=== PATIENT | male | born 1945 | race Caucasian/White ===

== ENCOUNTER → 2017-09-13 08:16 | Outpatient (CLI) | payer MEDICARE, SELFPAY ==
[2017-09-13 10:51] LABS: AST(SGOT) 19 U/L (15-37); Alanine Aminotransfer ALT/SGPT 33 U/L (16-61); Albumin, Serum 3.8 g/dL (3.2-5.0); Alkaline Phosphatase 64 U/L (45-117); Cholesterol 149 mg/dL (200); Globulin 3.4 g/dL (2.2-4.2); High Density Lipoprotein 41 mg/dL; Protein, Total 7.2 g/dL (6.4-8.2); Triglycerides 153 mg/dL; Very Low Density Lipoprotein 31 mg/dL (5-40)
== END ==
PROVIDERS: Family Provider Family Medicine; PCP Family Medicine; Visit Provider Physician Assistant Medical
DX: E78.5 Hyperlipidemia, unspecified (principal); Z79.899 Other long term (current) drug therapy
CPT/HCPCS: 36415; 80061; 80076

== ENCOUNTER → 2017-10-17 06:34 | Outpatient (CLI) | payer MEDICARE, SELFPAY ==
--- NOTE | 2017-10-17 11:00 | ECHOD_ITS ---
Reason For Study: DYSPNEA Procedure This was a 2D Doppler, Color Flow transthoracic echocardiogram. Contrast injection was performed. Exam performed in department. Left Ventricle Normal LV size. Left ventricular systolic function is normal. The estimated ejection fraction is 60 %. No regional wall motion abnormalities noted. Right Ventricle Normal RV size. Normal systolic function. Atria Normal left atrium. Normal right atrium. Mitral Valve Normal mitral valve. Tricuspid Valve Normal tricuspid valve. Unable to estimate RV systolic pressure/pulmonary artery pressure due to technically difficult study. Aortic Valve Normal aortic valve. Trisinus/trileaflet aortic valve. Pulmonic Valve Normal pulmonic valve. Great Vessels Normal aortic root. The pulmonary artery is normal size. Normal inferior vena cava. Pericardium/Pleural No pericardial effusion. Medication Diluted definity 3ml given slow IV push to enhance endocardial definition. MMode/2D Measurements & Calculations LVIDd: 5.2 cm IVSd: 0.95 cm Ao root diam: 3.2 cm LVIDs: 4.0 cm LVPWd: 0.89 cm RVDd: 3.4 cm FS: 22.6 % LAV(MOD-bp): 57.2 ml EDV(MOD-sp4): 86.5 ml EDV(MOD-sp2): 110.9 ml LAV(MOD-bp) Indexed: 24.8 ml/m2 ESV(MOD-sp4): 30.7 ml EF(MOD-sp2): 56.9 % LAV(MOD-sp2): 76.7 ml EF(MOD-sp4): 64.5 % LAV(MOD-sp4): 38.0 ml SV(MOD-sp4): 55.8 ml SV(MOD-sp2): 63.1 ml LA A4 area: 15.8 cm2 RA A4 area: 9.9 cm2 Doppler Measurements & Calculations MV E max justin: 69.0 cm/sec Lat Peak E' Justin: 8.6 cm/sec Med Peak E' Justin: 6.7 cm/sec MV A max justin: 52.8 cm/sec E/E' lat: 8.0 E/E' med: 10.3 MV E/A: 1.3 Ao V2 max: 107.9 cm/sec LV V1 max: 96.9 cm/sec PA V2 max: 110.6 cm/sec Ao max P.7 mmHg LV V1 max P.8 mmHg PI end-d justin: 85.9 cm/sec Interpretation Summary Normal LV size. Left ventricular systolic function is normal. The estimated ejection fraction is 60 %. Contrast injection was performed. Ordering Physician: Kash Sidhu Referring Physician: RAMSEY MARTÍNEZ Performed By: Casie Grande, CHRISSIE, RVT
--- NOTE | 2017-10-17 21:32 | STRESSREP ---
Stress Test Report Exercise myocardial perfusion stress test. 71-year-old man with a history of known coronary artery disease status post coronary bypass surgery. Medications aspirin Plavix Zestril Lopressor Pravachol Restoril. Resting EKG demonstrates sinus rhythm with rate of 61 bpm premature atrial complexes are noted resting blood pressure is 132/78 mmHg. The patient exercised according to regular Olivier protocol for total duration of 4 minutes and 30 seconds completing 1 minute and 30 seconds into stage II of the Olivier protocol the maximum heart rate attained was 142 bpm is 95% of maximum predicted heart rate the maximum workload attained was 6.4 metabolic equivalents. At rest there were no ST or T-wave changes noted suggest ischemia at peak exercise upsloping ST changes were noted with no meet the criteria for ischemia. Occasional premature ventricular complex was noted and T-wave inversions were noted in lead I and aVL. Myocardial perfusion protocol. 14.0 mCi of technetium 99m sestamibi was injected at rest. The patient exercised for 4 minutes and 30 seconds attaining 95% of maximum predicted heart rate and a workload of 6.4 metabolic equivalents at peak exercise 45.0 mCi of technetium 99m sestamibi was injected stress images were obtained stress and rest images were reconstructed and compared in the short axis vertical long and horizontal long axis. Gated images were also obtained pre- Perfusion SPECT analysis: Review of the stress images demonstrate a mild perfusion defect noted involving the apex on the stress and resting images. The rest of the moody septum lateral wall anterior wall and inferior wall appear to be well perfused. The above is suggestive of possible previous apical infarct. No evidence of reversibility is noted suggest ischemia. Gated SPECT analysis: The gated ejection fraction is noted to be 51%. Conclusion: Exercise myocardial perfusion stress test with no obvious evidence of ischemia. Preserved ejection fraction. Previous apical infarct present.
== END ==
PROVIDERS: Family Provider Family Medicine; PCP Family Medicine; Visit Provider Internal Medicine Cardiovascular Disease
DX: I25.10 Atherosclerotic heart disease of native coronary artery without angina pectoris (principal); R06.02 Shortness of breath
CPT/HCPCS: 78452; 93017; 93306; A9500; Q9957; A4216; C8929

== ENCOUNTER → 2019-03-01 09:14 | Outpatient (CLI) | payer MEDICARE, SELFPAY ==
[2018-09-21 10:25] VITALS: BMI 38.2
[2019-03-01 10:30] LABS: AST(SGOT) 27 U/L (15-37); Alanine Aminotransfer ALT/SGPT 38 U/L (16-61); Albumin, Serum 3.8 g/dL (3.2-5.0); Alkaline Phosphatase 78 U/L (45-117); Bilirubin, Direct < 0.05 mg/dL (0.00-0.30); Cholesterol 161 mg/dL (200); Globulin 3.5 g/dL (2.2-4.2); High Density Lipoprotein 40 mg/dL; Protein, Total 7.3 g/dL (6.4-8.2); Triglycerides 153 mg/dL; Very Low Density Lipoprotein 31 mg/dL (5-40)
== END ==
PROVIDERS: Family Provider Family Medicine; PCP Family Medicine; Referring Provider Nurse Practitioner Family; Visit Provider Nurse Practitioner Family
DX: I25.10 Atherosclerotic heart disease of native coronary artery without angina pectoris (principal); E78.5 Hyperlipidemia, unspecified
CPT/HCPCS: 36415; 80061; 80076

== ENCOUNTER → 2019-04-25 10:31 | Outpatient (CLI) | payer MEDICARE, SELFPAY ==
[2018-09-21 10:25] VITALS: BMI 38.2
[2019-04-25 12:37] LABS: ALB/GLOB Ratio 1.2 RATIO (0.9-2.4); AST(SGOT) 21 U/L (15-37); Alanine Aminotransfer ALT/SGPT 36 U/L (16-61); Albumin, Serum 3.8 g/dL (3.2-5.0); Alkaline Phosphatase 60 U/L (45-117); Anion Gap 9 (5-15); BUN 27 mg/dL (7-18); BUN/Creat Ratio 22.7 RATIO (10-20); Calcium,Total 8.7 mg/dL (8.5-10.1); Chloride 109 mmol/L (98-107); Creatinine, Serum 1.19 mg/dL (0.70-1.30); EST Glomerular Filtration Rate 64 mL/min (>60); Est Glom Filt Rate - Afr Amer 77 mL/min (>60); Globulin 3.2 g/dL (2.2-4.2); Glucose 112 mg/dL (74-106); PSA,Total - Annual Screen 1.38 ng/mL (0.00-4.00); Potassium 4.3 mmol/L (3.5-5.1); Sodium Level 141 mmol/L (136-145)
== END ==
PROVIDERS: Family Provider Family Medicine; PCP Family Medicine; Referring Provider Family Medicine; Visit Provider Family Medicine
DX: Z12.5 Encounter for screening for malignant neoplasm of prostate (principal); I25.810 Atherosclerosis of coronary artery bypass graft(s) without angina pectoris
CPT/HCPCS: 36415; 80053; 84153; G0103

== ENCOUNTER 2021-12-17 11:14 | Outpatient (CLI) | payer MEDICARE, SELFPAY ==
[2021-12-17 12:15] LABS: Absolute Lymphocyte Count 1.29 X10^3/uL (0.83-4.51); Absolute Neutrophil Count 3.7 X10^3/uL (2.0-7.7); Basophil# 0.04 X10^3/uL; Basophil% 0.7 % (0-1); Eosinophil# 0.11 X10^3/uL; Eosinophils% 1.8 % (0-5); Hematocrit 48.6 % (40-54); Hemoglobin 15.8 g/dL (13.0-16.5); Lymphocyte # 1.29 X10^3/ul (0.83-4.51); Lymphocyte % 21.3 % (19-41); Mean Corp Hgb Conc 32.5 g/dL (32-36); Mean Corpuscular Hgb 28.8 pg (27.0-32.0); Mean Corpuscular Volume 88.7 fL (80-94); Mean Platelet Vol. 11.2 fl (6.2-12.0); Monocyte# 0.91 X10^3/uL; NRBC Flagged by Analyzer 0 % (0-5); Neutrophil # 3.69 X10^3/uL (2.7-7.7); Neutrophil % 60.7 % (47-70); Platelet Count 204 K/mm3 (150-450); RBC Distribution Width CV 12.5 % (11.6-14.6); RBC Distribution Width SD 40.9 fl (35.1-43.9); Red Blood Count 5.48 M/mm3 (4.6-6.2); White Blood Count 6.1 K/mm3 (4.4-11.0)
[2021-12-17 12:40] LABS: ALB/GLOB Ratio 1.2 RATIO (0.9-2.4); AST(SGOT) 22 U/L (15-37); Alanine Aminotransfer ALT/SGPT 38 U/L (16-61); Albumin, Serum 3.7 g/dL (3.2-5.0); Alkaline Phosphatase 58 U/L (45-117); Anion Gap 6 (5-15); BUN 25 mg/dL (7-18); BUN/Creat Ratio 24.5 RATIO (10-20); Calcium,Total 9.5 mg/dL (8.5-10.1); Chloride 106 mmol/L (98-107); Creatinine, Serum 1.02 mg/dL (0.70-1.30); EST Glomerular Filtration Rate 75 mL/min (>60); Est Glom Filt Rate - Afr Amer 91 mL/min (>60); Globulin 3.2 g/dL (2.2-4.2); Glucose 89 mg/dL (74-106); Potassium 4.5 mmol/L (3.5-5.1); Protein, Total 6.9 g/dL (6.4-8.2); Sodium Level 137 mmol/L (136-145)
[2021-12-17 13:54] LABS: Microalbumin,Random Urine 6.5 mg/L (NO RANGE EST.); Microalbumin:Creatinine Ratio 5.2 mg/g CRE (<30 mg/g CRE)
== END 2021-12-17 23:59 | disposition home or self-care (01) ==
PROVIDERS: PCP Family Medicine; Referring Provider Family Medicine; Visit Provider Family Medicine
DX: Z00.00 Encounter for general adult medical examination without abnormal findings (principal); E66.01 Morbid (severe) obesity due to excess calories; I25.810 Atherosclerosis of coronary artery bypass graft(s) without angina pectoris; G47.33 Obstructive sleep apnea (adult) (pediatric); Z68.39 Body mass index [BMI] 39.0-39.9, adult
CPT/HCPCS: 36415; 80053; 82043; 82570; 83036; 85025

== ENCOUNTER → 2022-02-16 | Outpatient (CLI) | payer MEDICARE, SELFPAY ==
[2022-02-16 10:39] LABS: AST(SGOT) 19 U/L (15-37); Alanine Aminotransfer ALT/SGPT 34 U/L (16-61); Albumin, Serum 3.6 g/dL (3.2-5.0); Alkaline Phosphatase 59 U/L (45-117); Bilirubin, Direct 0.19 mg/dL (0.00-0.30); Cholesterol 144 mg/dL (200); Globulin 3.6 g/dL (2.2-4.2); High Density Lipoprotein 41 mg/dL; Protein, Total 7.2 g/dL (6.4-8.2); Triglycerides 149 mg/dL; Very Low Density Lipoprotein 30 mg/dL (5-40)
== END | disposition home or self-care (01) ==
LOC: LAB 09:28
PROVIDERS: PCP Family Medicine; Referring Provider Internal Medicine Cardiovascular Disease; Visit Provider Internal Medicine Cardiovascular Disease
DX: E78.00 Pure hypercholesterolemia, unspecified (principal)
CPT/HCPCS: 36415; 80061; 80076

== ENCOUNTER → 2022-12-20 | Outpatient (CLI) | payer MEDICARE, SELFPAY ==
[2022-12-20 12:57] LABS: Absolute Lymphocyte Count 1.25 X10^3/uL (0.83-4.51); Absolute Neutrophil Count 3.7 X10^3/uL (2.0-7.7); Basophil# 0.03 X10^3/uL; Basophil% 0.5 % (0-1); Eosinophil# 0.17 X10^3/uL; Eosinophils% 2.9 % (0-5); Hematocrit 48.3 % (40-54); Hemoglobin 15.6 g/dL (13.0-16.5); Lymphocyte # 1.25 X10^3/ul (0.83-4.51); Lymphocyte % 21.2 % (19-41); Mean Corp Hgb Conc 32.3 g/dL (32-36); Mean Corpuscular Hgb 29.1 pg (27.0-32.0); Mean Corpuscular Volume 89.9 fL (80-94); Mean Platelet Vol. 11.4 fl (6.2-12.0); Monocyte# 0.72 X10^3/uL; Monocyte% 12.2 % (0-10); NRBC Flagged by Analyzer 0 % (0-5); Neutrophil # 3.71 X10^3/uL (2.7-7.7); Neutrophil % 62.9 % (47-70); Platelet Count 169 K/mm3 (150-450); RBC Distribution Width CV 12.6 % (11.6-14.6); RBC Distribution Width SD 41.4 fl (35.1-43.9); Red Blood Count 5.37 M/mm3 (4.6-6.2); White Blood Count 5.9 K/mm3 (4.4-11.0)
[2022-12-20 13:13] LABS: Microalbumin,Random Urine 6.2 mg/L (NO RANGE EST.); Microalbumin:Creatinine Ratio 6.9 mg/g CRE (<30 mg/g CRE)
[2022-12-20 13:36] LABS: AST(SGOT) 20 U/L (15-37); Alanine Aminotransfer ALT/SGPT 36 U/L (16-61); Albumin, Serum 3.5 g/dL (3.2-5.0); Alkaline Phosphatase 55 U/L (45-117); Anion Gap 6 (5-15); BUN 15 mg/dL (7-18); BUN/Creat Ratio 16.3 RATIO (10-20); Calcium,Total 9.1 mg/dL (8.5-10.1); Chloride 109 mmol/L (98-107); Creatinine, Serum 0.92 mg/dL (0.70-1.30); EST Glomerular Filtration Rate 84 mL/min (>60); Est Glom Filt Rate - Afr Amer 102 mL/min (>60); Globulin 3.4 g/dL (2.2-4.2); Glucose 94 mg/dL (74-106); Hemoglobin A1c 6.1 % (3.8-5.6); Potassium 4.1 mmol/L (3.5-5.1); Protein, Total 6.9 g/dL (6.4-8.2); Sodium Level 139 mmol/L (136-145)
== END | disposition home or self-care (01) ==
LOC: MFPLAB 11:23
PROVIDERS: PCP Family Medicine; Visit Provider Family Medicine
DX: R73.03 Prediabetes (principal); G47.33 Obstructive sleep apnea (adult) (pediatric)
CPT/HCPCS: 36415; 80053; 82043; 82570; 83036; 85025

== ENCOUNTER → 2023-03-14 | Outpatient (CLI) | payer MEDICARE, SELFPAY ==
--- NOTE | 2023-03-16 08:26 | STRESSREP ---
Stress Test Report Pharmacologic myocardial perfusion stress test. 77-year-old man with a history of coronary artery disease Resting EKG demonstrates sinus rhythm with a rate of 60 bpm. Resting blood pressure is 118/80 mmHg. 0.4 mg of regadenoson was infused per usual protocol followed by rapid intravenous saline flush injection. Continuous EKG monitoring was performed. The maximum heart rate was 82 bpm which was 57% of max impacted heart rate the maximum workload was 1 metabolic equivalent. At rest there were no ST or T wave changes noted to suggest ischemia and at peak infusion nonspecific ST changes were noted which did not meet the criteria for ischemia. No clinical angina is noted. The final blood pressure was 128/80 mmHg. Myocardial perfusion protocol. 14.7 mCi of technetium 99m sestamibi was injected at rest. 0.4 mg of regadenoson was infused per usual protocol. At peak infusion 44.9 mCi of technetium 99m sestamibi was injected stress images were obtained stress and rest images were reconstructed and compared in the short axis vertical long and horizontal long axis. Gated images were also obtained. Perfusion SPECT analysis: Review of the stress images demonstrate normal uptake of tracer noted in all areas of the myocardium except for the apex and the basal anterolateral wall. Both these areas have reduced perfusion. The resting images similar demonstrated normal uptake of tracer noted as above and is suggestive of previous infarct in these territories. No ischemia is noted. Gated SPECT analysis: The gated ejection fraction is 52%. Conclusion: Normal pharmacologic myocardial perfusion stress test. Previous apical infarct and basal inferolateral infarct Preserved ejection fraction.
== END | disposition home or self-care (01) ==
LOC: CVS 06:10
PROVIDERS: PCP Family Medicine; Referring Provider Internal Medicine Cardiovascular Disease; Visit Provider Internal Medicine Cardiovascular Disease
DX: Z95.1 Presence of aortocoronary bypass graft (principal); I25.10 Atherosclerotic heart disease of native coronary artery without angina pectoris
CPT/HCPCS: 78452; 93017; A9500; A4216; J2785

== ENCOUNTER → 2023-06-23 | Outpatient (CLI) | payer MEDICARE, SELFPAY ==
--- OUTSIDE RECORDS SUMMARY | 2023-06-23 10:15 | XMS RPT_ITS | CCD ---
Author Name Unknown Address [address] [place] [address] Organization [facility] Care Team Providers Care Aging Room Operator Name Role Phone Cherelle Roger Unavailable Unavailable COSME Ochoa, Carolin Francois Unavailable Franko Vizcaino Unavailable Unavailable Sloane SANDHU, Alva Clancy Unavailable Unavailable Cherelle Roger Unavailable Unavailable Pcp, No Primary Care Provider Unavailcristiana Perez MD, Ramsey Moss Primary Care Provider [phone] RAMSEY PEREZ Primary Care Unavailable DIANELYS GÓMEZ Attending Unavailable DIANELYS GÓMEZ Admitting Unavailable Ramsey Perez MD Primary Care Provider Ramsey Perez MD Primary Care Provider [phone] DIANELYS GÓMEZ Attending Unavailable DIANELYS GÓMEZ Referring Unavailable MAURICIO RAMSEY SIMEON Primary Care Unavailable ALISON VASQUEZ Attending Unavailable ALISON VASQUEZ Referring Unavailable MACIE PEREZIC SIMEON Primary Care Unavailable DIANELYS GÓMEZ Attending Unavailable ANTHONY DORSEY Referring Unavailable DIANELYS GÓMEZ Attending Unavailable DIANELYS GÓMEZ Referring Unavailable MAURICIO RAMSEY SIMEON Primary Care Unavailable ALISON VASQUEZ Attending Unavailable DIANELYS GÓMEZ Referring Unavailable RAMSEY PEREZ SIMEON Primary Care Unavailable Medications Current Medications Medication Drug Class(es) Dates Sig (Normalized) Sig (Original) benoxinate hydrochloride 4 mg/ml / fluorescein sodium 2.5 mg/ml ophthalmic solution (1 source) Diagnostic Dye Start: 02-10-2022 End: 02-10-2022 fluorescein-benoxi keith 0.25-0.4 % 1 Drop (FLURESS) phenylephrine hydrochloride 25 mg/ml ophthalmic solution (1 source) alpha-1 Adrenergic Agonist Start: 02-10-2022 End: 02-10-2022 PHENYLephrine 2.5 % 1 Drop (AK-DILATE, ANTONIO-SYNEPHRINE) proparacaine hydrochloride 5 mg/ml ophthalmic solution (1 source) Local Anesthetic Start: 02-10-2022 End: 02-10-2022 proparacaine 0.5 % 1 Drop (ALCAINE) tropicamide 10 mg/ml ophthalmic solution (1 source) Anticholinergic Start: 02-10-2022 End: 02-10-2022 tropicamide 1 % 1 Drop (MYDRIACYL) Completed/Discontinued Medications Medication Drug Class(es) Dates Sig (Normalized) Sig (Original) aspirin 81 mg oral tablet (20 sources) Platelet Aggregation Inhibitor, Nonsteroidal Anti-inflammatory Drug Start: 11-14-2012 take 1 tablet by mouth every other day ASPIRIN EC 81 MG TBEC One tablet by mouth every other day ASPIRIN [id number] Carolin Ochoa PA-C Problems Active Problems Problem Classification Problem Date Documented Date Episodic/Chronic Cataract (12 sources) Bilateral senile combined form cataracts of eyes; Translations: [Combined forms of age-related cataract, bilateral] Onset: 02-10-2022 Chronic Complication of device; implant or graft (8 sources) Atherosclerosis of coronary artery bypass graft(s) without angina pectoris; Translations: [Atherosclerosis of coronary artery bypass graft(s) without angina pectoris] Onset: 09-01-2010 Resolved: 03-08-2017 03-08-2017 Chronic Coronary atherosclerosis and other heart disease (20 sources) Coronary arteriosclerosis; Translations: [Coronary atherosclerosis] Onset: 03-14-2008 Resolved: 08-29-2015 09-01-2010 Chronic Disorders of lipid metabolism (12 sources) Hyperlipidemia; Translations: [Hyperlipidemia, unspecified] Onset: 03-14-2008 05-02-2012 Chronic Essential hypertension (5 sources) Hypertensive disorder; Translations: [Essential (primary) hypertension] Onset: 03-04-2015 03-04-2015 Chronic Osteoarthritis (7 sources) Degenerative joint disease involving multiple joints; Translations: [Polyosteoarthritis, unspecified] Onset: 03-14-2008 03-14-2008 Chronic Other ear and sense organ disorders (7 sources) Hearing loss; Translations: [Unspecified hearing loss, unspecified ear] Onset: 03-14-2008 03-14-2008 Chronic Other nutritional; endocrine; and metabolic disorders (13 sources) Body mass index (BMI) 33.0-33.9, adult; Translations: [Body mass index (BMI) 34.0-34.9, adult] Onset: 07-06-2013 Resolved: 09-04-2015 08-30-2014 Chronic Other nutritional; endocrine; and metabolic disorders (4 sources) Body mass index (BMI) 35.0-35.9, adult; Translations: [Body mass index (BMI) 35.0-35.9, adult] Onset: 03-04-2015 03-02-2016 Chronic Other nutritional; endocrine; and metabolic disorders (8 sources) Body mass index (BMI) 34.0-34.9, adult; Translations: [Body mass index (BMI) 34.0-34.9, adult] Onset: 07-06-2013 03-04-2015 Chronic Other nutritional; endocrine; and metabolic disorders (7 sources) Obesity; Translations: [Obesity, unspecified] Onset: 08-31-2010 08-31-2010 Chronic Retinal detachments; defects; vascular occlusion; and retinopathy (3 sources) Epiretinal membrane of left eye; Translations: [Puckering of macula, left eye] Chronic Unclassified (20 sources) Long-term drug therapy; Translations: [Long-term (current) use of other medications] Onset: 09-01-2010 Resolved: 03-04-2015 05-02-2012 Unclassified (3 sources) 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; Translations: [Presence of aortocoronary bypass graft] Onset: 09-01-2010 03-08-2017 Past or Other Problems Problem Classification Problem Date Documented Da te Episodic/Chronic Abdominal hernia (14 sources) Incisional hernia; Translations: [Incisional hernia without obstruction or gangrene] Onset: 11-22-2013 11-22-2013 Episodic Coronary atherosclerosis and other heart disease (5 sources) Presence of aortocoronary bypass graft; Translations: [Presence of aortocoronary bypass graft] Onset: 09-01-2010 09-01-2010 Episodic Residual codes; unclassified (7 sources) Insomnia; Translations: [Insomnia, unspecified] Onset: 03-14-2008 03-14-2008 Episodic Results Test Name Value Interpretation Reference Range Facil ity Vital Signs Date Time Vital Sign Value Performing Clinician [facility] 03-16-2017 09:24-0400 BMI (Body Mass Index) 35.56 kg/m2 [facility] Work Phone: 03-16-2017 09:24-0400 BP Diastolic 70 mm[Hg] [facility] Work Phone: 03-16-2017 09:24-0400 BP Systolic 118 mm[Hg] [facility] Work Phone: 03-16-2017 09:24-0400 Height 180.34 cm [facility] Work Phone: 03-16-2017 09:24-0400 Pulse (Heart Rate) 62 /min [facility] Work Phone: 03-16-2017 09:24-0400 Respiratory Rate 18 /min [facility] Work Phone: 03-16-2017 09:24-0400 Weight 115.67 kg C[facility]lle [facility] Work Phone: 09-07-2016 09:37-0400 BMI (Body Mass Index) 35.14 kg/m2 Carolin Ochoa PA-C [facility] Work Phone: 09-07-2016 09:37-0400 BP Diastolic 54 mm[Hg] Carolin Ochoa PA-C [facility] Work Phone: 09-07-2016 09:37-0400 BP Systolic 110 mm[Hg] Carolin Ochoa PA-C [facility] Work Phone: 09-07-2016 09:37-0400 Height 180.34 cm Carolin Ochoa PA-C [facility] Work Phone: 09-07-2016 09:37-0400 Pulse (Heart Rate) 60 /min Carolin Ochoa PA-C [facility] Work Phone: 09-07-2016 09:37-0400 Respiratory Rate 20 /min Carolin Ochoa PA-C [facility] Work Phone: 09-07-2016 09:37-0400 Weight 114.31 kg Carolin Ochoa PA-C [facility] Work Phone: 03-02-2016 09:04-0400 Heart rate 53 /min [facility] Work Phone: 03-02-2016 08:51-0400 BSA (Body Surface Area) 2.35 m2 Carolin Ochoa PA-C [facility] Work Phone: 11-14-2012 09:42-0400 Heart rate 375 ms Carolin Ochoa PA-C [facility] Work Phone: Encounters Encounter Date Encounter Type Care Provider Facility Start: 05-11-2022 End: 05-11-2022 ambulatory ALISON VASQUEZ Facility:[facility] Start: 05-11-2022 End: 05-11-2022 Patient encounter procedure Alison Vasquez OD Work Phone: Ophthalmology Procedures Date Procedure Procedure Detail Performing Clinician Start: 04-20-2022 Computerized ophthal rebeka imaging retina Dianelys Gómez MD Work Phone: Start: 04-15-2022 Computerized ophthal rebeka imaging retina Alison Vasquez OD Work Phone: Start: 03-16-2017 End: 03-16-2017 INDEPENDENT DRIVER Carolin Ochoa PA-C Work Phone: Start: 03-16-2017 End: 03-16-2017 Follow Up Appt 6 months Carolin lara PA-C Work Phone: Start: 03-16-2017 End: 03-16-2017 Dietary management education, guidance, and counseling Cherelle Roger Start: 03-04-2017 End: 03-04-2017 *Hepatic Function Panel Priscila Austin Start: 03-04-2017 End: 03-04-2017 Lipid 1996 panel - Serum or Plasma Kash S Nahum, MD Start: 09-07-2016 End: 09-07-2016 Follow Up Appt 6 months Priscila Austin Start: 09-07-2016 End: 09-07-2016 VASU Sidhu MD Start: 08-24-2016 End: 09-03-2016 *Hepatic Function Panel Priscila Austin Start: 08-24-2016 End: 09-03-2016 Lipid 1996 panel - Serum or Plasma Kash Sidhu MD Start: 03-02-2016 End: 03-02-2016 INDEPENDENT DRIVER Carolin Ochoa PA-C Work Phone: Start: 03-02-2016 End: 03-02-2016 Ecg routine ecg w/least 12 lds w/i&r Carolin Ochoa PA-C Work Phone: Start: 03-02-2016 End: 03-02-2016 Follow Up Appt 6 months Carolin lara PA-C Work Phone: Start: 02-24-2016 End: 02-26-2016 *Hepatic Function Panel Priscila Austin Start: 02-24-2016 End: 02-26-2016 Lipid 1996 panel - Serum or Plasma Kash Sidhu MD Start: 09-05-2015 End: 09-05-2015 Follow Up Appt 6 months Priscila Austin Start: 09-05-2015 End: 09-05-2015 VASU Sidhu MD Start: 09-05-2015 End: 09-05-2015 Dietary management education, guidance, and counseling Carolin Ochoa PA-C Start: 08-29-2015 End: 08-29-2015 *Hepatic Function Panel Priscila Austin Start: 08-29-2015 End: 08-29-2015 Lipid 1996 panel - Serum or Plasma Kash Sidhu MD Start: 03-04-2015 End: 03-04-2015 INDEPENDENT DRIVER Carolin Ochoa PA-C Work Phone: Start: 03-04-2015 End: 03-05-2015 Documentation of current medications Carolin Ochoa PA-C Work Phone: Start: 03-04-2015 End: 03-04-2015 Follow Up Appt 6 months Carolin lara PA-C Work Phone: Start: 01-24-2015 End: 03-04-2015 *Hepatic Function Panel Carolin lara PA-C Work Phone: Start: 01-24-2015 End: 03-04-2015 Lipid 1996 panel - Serum or Plasma Carolin Ochoa PA-C Work Phone: Start: 08-30-2014 End: 02-28-2015 *Hepatic Function Panel Priscila Austin Start: 08-30-2014 End: 08-31-2014 Documentation of current medications Kash Sidhu MD Start: 08-30-2014 End: 02-28-2015 Ecg routine ecg w/least 12 lds w/i&r Kash Sidhu MD Start: 08-30-2014 End: 08-30-2014 Follow Up Appt 6 months Priscila Austin Start: 08-30-2014 End: 02-28-2015 Lipid 1996 panel - Serum or Plasma Kash Sidhu MD Start: 08-30-2014 End: 08-30-2014 MMM Kash Sidhu MD Start: 08-14-2014 End: 02-28-2015 *Hepatic Function Panel Priscila Austin Start: 08-14-2014 End: 02-28-2015 Lipid 1996 panel - Serum or Plasma Kash Sidhu MD Start: 01-11-2014 End: 02-13-2014 *Hepatic Function Panel Carolin lara PA-C Work Phone: Start: 01-11-2014 End: 01-11-2014 INDEPENDENT DRIVER Carolin Ochoa PA-C Work Phone: Start: 01-11-2014 End: 01-11-2014 Follow Up Appt 6 months Carolin lara PA-C Work Phone: Start: 01-11-2014 End: 02-13-2014 Lipid Oumar panel - Serum or Plasma Carolin Ochoa PA-C Work Phone: Start: 07-06-2013 End: 07-06-2013 Follow Up Appt 6 months Priscila Austin Start: 07-06-2013 End: 07-06-2013 MMM Kash Sidhu MD Start: 11-14-2012 End: 02-15-2013 *Hepatic Function Panel Carolin lara PA-C Work Phone: Start: 11-14-2012 End: 11-14-2012 INDEPENDENT DRIVER Carolin Ochoa PA-C Work Phone: Start: 11-14-2012 End: 11-14-2012 Follow Up Appt 6 months Carolin lara PA-C Work Phone: Start: 11-14-2012 End: 01-11-2014 Lipid 1996 panel - Serum or Plasma Carolin Ochoa PA-C Work Phone: Start: 10-28-2012 End: 02-16-2013 *Hepatic Function Panel Priscila Austin Start: 10-28-2012 End: 02-16-2013 Lipid 1996 panel - Serum or Plasma Kash Sidhu MD Start: 05-10-2012 End: 05-10-2012 Follow Up Appt 6 months Priscila Austin Start: 09-23-2011 End: 09-23-2011 Follow Up Appt 6 months Priscila Austin Start: 05-04-2011 End: 05-01-2012 *Hepatic Function Panel Priscila Austin Start: 05-04-2011 End: 05-04-2011 Follow Up Appt 6 months Priscila Austin Start: 05-04-2011 End: 05-01-2012 Lipid 1996 panel - Serum or Plasma Kash Sidhu MD Plan of Treatment Date Care Activity Detail Author Start: 01-28-2022 Influenza vaccination INFLUENZA (#1) [facility] Start: 05-30-2021 ADVANCE DIRECTIVE DISCUSSION ADVANCE DIRECTIVE DISCUSSION [facility] Start: 05-30-2021 DEPRESSION ASSESSMENT DEPRESSION ASSESSMENT [facility] Start: 08-31-2020 Urine microalbumin profile DTAP,TDAP,TD (2 - Td or Tdap) [facility] Start: 03-04-2018 Hepatitis B surface antibody level LDL CHOLESTEROL [facility] Start: 09-20-2017 End: 09-20-2017 Appointment Appointment [facility] Work Phone: Start: 09-02-2017 End: 03-04-2017 *Hepatic Function Panel *Hepatic Function Panel [facility] Work Phone: Start: 09-02-2017 End: 03-04-2017 Lipid panel [AGGREGATE] *Lipid Profile CC PCP [facility] Work Phone: Start: 03-16-2017 End: 03-16-2017 INDEPENDENT DRIVER INDEPENDENT DRIVER [facility] Work Phone: Start: 03-16-2017 End: 03-16-2017 Follow Up Appt 6 months Follow Up Appt 6 months [facility] Work Phone: Start: 03-16-2017 End: 03-16-2017 Appointment Appointment [facility] Work Phone: Start: 03-07-2017 End: 03-04-2017 *Hepatic Function Panel *Hepatic Function Panel [facility] Work Phone: Start: 03-07-2017 End: 03-04-2017 Lipid panel [AGGREGATE] *Lipid Profile CC PCP [facility] Work Phone: Start: 09-07-2016 End: 09-07-2016 Follow Up Appt 6 months Follow Up Appt 6 months [facility] Work Phone: Start: 09-07-2016 End: 09-07-2016 MMM MMM [facility] Work Phone: Start: 08-24-2016 End: 09-03-2016 *Hepatic Function Panel *Hepatic Function Panel [facility] Work Phone: Start: 08-24-2016 End: 09-03-2016 Lipid panel [AGGREGATE] *Lipid Profile CC PCP [facility] Work Phone: Start: 03-02-2016 End: 03-02-2016 INDEPENDENT DRIVER INDEPENDENT DRIVER [facility] Work Phone: Start: 03-02-2016 End: 03-02-2016 Ecg routine ecg w/least 12 lds w/i&r EKG (In office) [facility] Work Phone: Start: 03-02-2016 End: 03-02-2016 Follow Up Appt 6 months Follow Up Appt 6 months [facility] Work Phone: Start: 02-24-2016 End: 02-26-2016 *Hepatic Function Panel *Hepatic Function Panel [facility] Work Phone: Start: 02-24-2016 End: 02-26-2016 Lipid panel [AGGREGATE] *Lipid Profile CC PCP [facility] Work Phone: Start: 09-05-2015 End: 09-05-2015 Follow Up Appt 6 months Follow Up Appt 6 months [facility] Work Phone: Start: 09-05-2015 End: 09-05-2015 MMM MMM [facility] Work Phone: Start: 08-29-2015 End: 08-29-2015 *Hepatic Function Panel *Hepatic Function Panel [facility] Work Phone: Start: 08-29-2015 End: 08-29-2015 Lipid panel [AGGREGATE] *Lipid Profile CC PCP [facility] Work Phone: Start: 03-04-2015 End: 03-04-2015 INDEPENDENT DRIVER INDEPENDENT DRIVER [facility] Work Phone: Start: 03-04-2015 End: 03-04-2015 Follow Up Appt 6 months Follow Up Appt 6 months [facility] Work Phone: Start: 01-24-2015 End: 03-04-2015 *Hepatic Function Panel *Hepatic Function Panel [facility] Work Phone: Start: 01-24-2015 End: 03-04-2015 Lipid panel [AGGREGATE] *Lipid Profile CC PCP [facility] Work Phone: Start: 08-30-2014 End: 02-28-2015 *Hepatic Function Panel *Hepatic Function Panel [facility] Work Phone: Start: 08-30-2014 End: 02-28-2015 Ecg routine ecg w/least 12 lds w/i&r EKG (In office) [facility] Work Phone: Start: 08-30-2014 End: 08-30-2014 Follow Up Appt 6 months Follow Up Appt 6 months [facility] Work Phone: Start: 08-30-2014 End: 02-28-2015 Lipid panel [AGGREGATE] *Lipid Profile CC PCP [facility] Work Phone: Start: 08-30-2014 End: 08-30-2014 MMM MMM [facility] Work Phone: Start: 08-14-2014 End: 02-28-2015 *Hepatic Function Panel *Hepatic Function Panel [facility] Work Phone: Start: 08-14-2014 End: 02-28-2015 Lipid panel [AGGREGATE] *Lipid Profile CC PCP [facility] Work Phone: Start: 01-11-2014 End: 02-13-2014 *Hepatic Function Panel *Hepatic Function Panel [facility] Work Phone: Start: 01-11-2014 End: 01-11-2014 INDEPENDENT DRIVER INDEPENDENT DRIVER [facility] Work Phone: Start: 01-11-2014 End: 01-11-2014 Follow Up Appt 6 months Follow Up Appt 6 months [facility] Work Phone: Start: 01-11-2014 End: 02-13-2014 Lipid panel [AGGREGATE] *Lipid Profile CC PCP [facility] Work Phone: Start: 12-28-2013 End: 01-11-2014 Lipid panel [AGGREGATE] *Lipid Profile CC PCP [facility] Work Phone: Start: 07-06-2013 End: 07-06-2013 Follow Up Appt 6 months Follow Up Appt 6 months [facility] Work Phone: Start: 07-06-2013 End: 07-06-2013 MMM MMM [facility] Work Phone: Start: 11-14-2012 End: 02-15-2013 *Hepatic Function Panel *Hepatic Function Panel [facility] Work Phone: Start: 11-14-2012 End: 11-14-2012 INDEPENDENT DRIVER INDEPENDENT DRIVER [facility] Work Phone: Start: 11-14-2012 End: 11-14-2012 Follow Up Appt 6 months Follow Up Appt 6 months [facility] Work Phone: Start: 11-14-2012 End: 01-11-2014 Lipid panel [AGGREGATE] *Lipid Profile CC PCP [facility] Work Phone: Start: 10-28-2012 End: 05-02-2012 *Hepatic Function Panel *Hepatic Function Panel [facility] Work Phone: Start: 10-28-2012 End: 05-02-2012 Lipid panel [AGGREGATE] *Lipid Profile [facility] Work Phone: Start: 05-10-2012 End: 05-10-2012 Follow Up Appt 6 months Follow Up Appt 6 months [facility] [facility] Work Phone: Start: 09-23-2011 End: 09-23-2011 Follow Up Appt 6 months Follow Up Appt 6 months [facility] [facility] Work Phone: Start: 05-04-2011 End: 05-01-2012 *Hepatic Function Panel *Hepatic Function Panel [facility] [facility] Work Phone: Start: 05-04-2011 End: 05-04-2011 Follow Up Appt 6 months Follow Up Appt 6 months [facility] [facility] Work Phone: Start: 05-04-2011 End: 05-01-2012 Lipid panel [AGGREGATE] *Lipid Profile [facility] Work Phone: Start: 04-06-2011 DIABETES SCREEN DIABETES SCREEN [facility] Start: 2009 PNEUMOCOCCAL: 65+ (1 - PCV) PNEUMOCOCCAL: 65+ (1 - PCV) [facility] Start: 03-14-2009 PNEUMOCOCCAL: 65+ (2 - PCV) PNEUMOCOCCAL: 65+ (2 - PCV) [facility] Start: 1994 SHINGRIX VACCINE (1 of 2) SHINGRIX VACCINE (1 of 2) [facility] Start: 1962 ANNUAL PCP TEAM CHRONIC DISEASE VISIT ANNUAL PCP TEAM CHRONIC DISEASE VISIT [facility] Start: 1962 HEPATITIS C SCREENING HEPATITIS C SCREENING [facility] Start: 1956 Adult depression screening assessment DEPRESSION SCREENING [facility] Start: 06-27-1945 COVID-19 VACCINE (#1) COVID-19 VACCINE (#1) [facility] CORNEAL TOPOGRAPHY A TLAS OU (BOTH EYES) CORNEAL TOPOGRAPHY ATLAS OU (BOTH EYES) OPHT Imaging Routine Combined forms of age-related cataract of both eyes 02/10/2022 11:04 AM EDT [facility] Work Phone: IOL BIOMETRY W/ IOL CALC OU (BOTH EYES) IOL BIOMETRY W/ IOL CALC OU (BOTH EYES) OPHT Imaging Routine Combined forms of age-related cataract of both eyes 02/10/2022 11:56 AM EDT [facility] Work Phone: OCT MACULA CIRRUS OU (BOTH EYES) OCT MACULA CIRRUS OU (BOTH EYES) OPHT Imaging Routine Combined forms of age-related cataract of both eyes 02/10/2022 11:04 AM EDT [facility] Work Phone: Patient Education [facility] Work Phone: LD [facility] Immunizations Immunization Date Immunization Notes Care Provider Diane fulton 08-31-2010 tetanus toxoid, redu sven diphtheria toxoid, and acellular pertussis vaccine, adsorbed Dianelys Gómez MD Work Phone: [facility] Work Phone: 03-14-2008 pneumococcal polysaccharide vaccine, 23 valent Dianelys Gómez MD Work Phone: [facility] Work Phone: Payers Date Payer Category Payer Medicare AETNA MEDICARE A ETNA MEDICARE HMO [id number] 2021-Present [phone] [address] [place] [address] [facility] [id number] 2021 Medicare [id number] Social History Date Type Detail Facility Start: 09-29-2011 Tobacco smoking stat us COIS Never smoked tobacco [facility] Start: 09-29-2011 Tobacco use and exposure User of smo keless tobacco [facility] History of tobacco use Snuff User [facility] Start: 02-10-2022 End: 05-11-2022 Alcohol intake Not Asked [facility] Start: 1945 Sex Assigned At Not on file [facility] Start: 01-16-2022 End: 04-06-2022 Exposure to SARS-CoV-2 (event) Not sure [facility] Medical Equipment Procedure Code Equipment Code Equipment Origin al Text Equipment Identifier Dates Lens Acrysof Ultrasert +19 Diopter Acrylic Iol 1 Piece Foldable Uv Blue - [id number] Start: 04-06-2022 Clinical Notes 03-14-2008 to 05-11-2022 Alison Vasquez, OD - 05/11/2022 9:41 AM ESTPatient Veronica Gómez MD - 04/20/2022 12:48 PM ESTPatient InstructionsPatient InstructionsDianelys Gómez MD - 04/07/2022 8:53 AM EST Note Date & Type Note Facility 05-11-2022 Note HNO ID: [id number] Author: Alison Vasquez, CEZAR Service: ? Author Type: FUNERAL PREARRANGEMENT COUNSELOR Type: Progress Notes Filed: 05/11/2022 9:46 AM Note Text: (Z96.1) Pseudophakia (primary encounter diagnosis) (H35.372) Epiretinal membrane (ERM) of left eye (H25.811) Combined forms of age-related cataract of right eye BCVA: 20/30 with ERM left eye-patient opts to try glasses and observe vs consulting with [facility] Continue follow-up with Dr. Dorsey (recommend 6 months) and [facility] as needed Alison Vasquez, OD May 11, 2022 9:41 AM [facility] 05-11-2022 History of Presen t illness Narrative (Z96.1) Pseudophakia (primary encounter diagnosis) (H35.372) Epiretinal membrane (ERM) of left eye (H25.811) Combined forms of age-related cataract of right eye BCVA: 20/30 with ERM left eye-patient opts to try glasses and observe vs consulting with [facility] Continue follow-up with Dr. Dorsey (recommend 6 months) and [facility] as needed Alison Vasquez, OD May 11, 2022 9:41 AM documented in this encounter [facility] 04-20-2022 Note HNO ID: [id number] Author: Dianelys Gómez MD Service: ? Author Type: Physician Type: Progress Notes Filed: 04/20/2022 12:53 PM Note Text: Assessment and Plan 1. Combined forms of age-related cataract of both eyes -s/p cataract extraction with intraocular lens implantation left eye 04/06/22 -looks good (astigmatism left eye) Plan: -taper drops per protocol -precautions -3-4 weeks with refraction. If still not satisfied with vision, to [facility]/ sooner as needed I have confirmed and edited as necessary the relevant ophthalmic history, ROS, and the neuro exam findings as obtained by others. I have seen and examined Cesar Bartholomew. I have discussed the case and the management of this patient's care with the Resident/Fellow, if applicable. I also have reviewed and agree with the assessment and plan as stated above and agree with all of its relevant components. Dianelys Gómez MD [facility] 04-20-2022 Instructions Dianelys Gómez MD - 04/20/2022 12:50 PM EST Images from the original note were not included. documented in this encounter [facility] 04-20-2022 History of Presen t illness Narrative Assessment and Plan 1. Combined forms of age-related cataract of both eyes -s/p cataract extraction with intraocular lens implantation left eye 04/06/22 -looks good (astigmatism left eye) Plan: -taper drops per protocol -precautions -3-4 weeks with refraction. If still not satisfied with vision, to [facility]/ sooner as needed I have confirmed and edited as necessary the relevant ophthalmic history, ROS, and the neuro exam findings as obtained by others. I have seen and examined Cesar Bartholomew. I have discussed the case and the management of this patient's care with the Resident/Fellow, if applicable. I also have reviewed and agree with the assessment and plan as stated above and agree with all of its relevant components. Dianelys Gómez MD documented in this encounter [facility] 04-15-2022 Instructions Alison Vasqeuz OD - 04/15/2022 9:57 AM EST Use Prenisolone and Ketorolac four times daily in left eye Use Moxifloxacin three times daily in left eye documented in this encounter [facility] 04-07-2022 Note HNO ID: [id number] Author: Dianelys Gómez MD Service: ? Author Type: Physician Type: Progress Notes Filed: 04/07/2022 8:57 AM Note Text: Assessment and Plan 1. Combined forms of age-related cataract of both eyes -s/p cataract extraction with intraocular lens implantation left eye 04/06/22 -looks good (astigmatism left eye) Plan: -drops per protocol -precautions -1 week / sooner as needed I have confirmed and edited as necessary the relevant ophthalmic history, ROS, and the neuro exam findings as obtained by others. I have seen and examined Cesar Bartholomew. I have discussed the case and the management of this patient's care with the Resident/Fellow, if applicable. I also have reviewed and agree with the assessment and plan as stated above and agree with all of its relevant components. Dianelys Gómez MD [facility] 04-07-2022 Instructions Dianelys Gómez MD - 04/07/2022 8:55 AM EST Images from the original note were not included. documented in this encounter [facility] 04-07-2022 History of Presen t illness Narrative Assessment and Plan 1. Combined forms of age-related cataract of both eyes -s/p cataract extraction with intraocular lens implantation left eye 04/06/22 -looks good (astigmatism left eye) Plan: -drops per protocol -precautions -1 week / sooner as needed I have confirmed and edited as necessary the relevant ophthalmic history, ROS, and the neuro exam findings as obtained by others. I have seen and examined Cesar Bartholomew. I have discussed the case and the management of this patient's care with the Resident/Fellow, if applicable. I also have reviewed and agree with the assessment and plan as stated above and agree with all of its relevant components. Dianelys Gómez MD documented in this encounter [facility] documented as of this encounter (statuses as of 04/07/2022) [facility]11-08-2022 History of Past illness Narrative* Problem Noted Date Resolved Date Combined forms of age-related cataract of both e yes 04/06/2022 04/06/2022 Combined forms of age-related cataract of both e yes 02/10/2022 04/06/2022 Obesity, unspecified 03/14/2008 08/31/2010 documented as of this encounter (statuses as of 04/15/2022) [facility] History of Past illness Narrative* Problem Noted Date Resolved Date Combined forms of age-related cataract of both e yes 04/06/2022 04/06/2022 Combined forms of age-related cataract of both e yes 02/10/2022 04/06/2022 Obesity, unspecified 03/14/2008 08/31/2010 documented as of this encounter (statuses as of 04/20/2022) [facility] History of Past illness Narrative* Problem Noted Date Resolved Date Combined forms of age-related cataract of both e yes 04/06/2022 04/06/2022 Combined forms of age-related cataract of both e yes 02/10/2022 04/06/2022 Obesity, unspecified 03/14/2008 08/31/2010 documented as of this encounter (statuses as of 05/11/2022) [facility] Miscellaneous Notes* Telephone Encounter - Niurka Rothman RN - 02/11/2022 5:31 PM EDT Pended prescriptions for pre-operative drops to Dr. Gómez through refill encounter. Niurka Rothman RN February 11, 2022 5:32 PM * Telephone Encounter - Ann Mackey - 02/11/2022 2:07 PM EDT Received call from patient's Susana. Patient uses [facility], [address] [place] [address], [place], [id number]. . * Telephone Encounter - Niurka Rothman RN - 02/11/2022 12:07 PM EDT Left message for patient to call to confirm local pharmacy for pre-operative drops for cataract surgery with Dr. Gómez. Niurka Rothman RN February 11, 2022 12:08 PM [facility] Miscellaneous Notes* Telephone Encounter - Niurka Rothman RN - 02/11/2022 5:22 PM EDT Pended pre-op drops to Dr. Gómez for upcoming cataract surgery left eye . Niurka Rothman RN February 11, 2022 5:29 PM [facility] NoteHNO ID: [id number] Author: Dianelys Gómez MD Service: ? Author Type: Physician Type: Progress Notes Filed: 04/04/2022 3:39 PM Note Text: Assessment and Plan 1. Combined forms of age-related cataract of both eyes Cataract Presurgical Documentation Cataract: Left eye (OS) Current Visual Acuity Right Eye Distance SC 20/30 Left Eye Distance SC 20/25 Glare Testing: Right Eye Medium 20/40 Left Eye Medium 20/70 Visual Function: Cesar Bartholomew states that the decline in vision from the cataract impedes his abilities as listed in the HPI, as well as other activities of daily living. Cesar Bartholomew has confirmed that he is no longer able to function adequately on a day-to-day basis because of his current visual condition. Further, it is my medical opinion that the cataract is the primary cause, or at least a significantly contributory cause of his visual dysfunction. With uncomplicated cataract surgery and lens implantation, it is my expectation that his visual function and quality of life will improve, significantly. The risks, benefits, alternatives, personnel and complications of cataract surgery with lens implantation were discussed with Cesar Bartholomew in detail. he appeared to understand and asked that I proceed with plans for surgery. Plan: Cataract: Left eye (OS) Aim -0.25 SA60WF/ACU0T0 power +19.0 Flomax N Diabetes N Glaucoma N Astigmatism N Pentacam none right eye, 1.4 left eye Refractive surgery N Fuchs N Trypan blue N Malyugin ring Possible Other N/A I have confirmed and edited as necessary the relevant ophthalmic history, ROS, and the neuro exam findings as obtained by others. I have seen and examined Cesar Bartholomew. I have discussed the case and the management of this patient's care with the Resident/Fellow, if applicable. I also have reviewed and agree with the assessment and plan as stated above and agree with all of its relevant components. Dianelys Gómez MD February 10, 2022 11:42 [facility]09-14-2022 Instructions* Patient Instructions* Dianelys Gómez MD - 02/10/2022 11:52 AM EDT Images from the original note were not included. Pre-Op Instructions for patients of Dr. Dianelys Gómez 2 days prior to surgery start: Prednisolone acetate-use one drop four times a day in operative eye Moxifloxacin- use one drop four times each day in operative eye Ketorolac - use one drop four times each day in operative eye You may use the drops in any order, but close your eye for 5 minutes after each drop. Continue to use any previous eye drops unless instructed otherwise. Day of Surgery: Do not eat or drink anything 8 hours prior to procedure time. Take all of your morning medication with only enough water to swallow them unless instructed otherwise by Dr. Gómez or Primary Care physician. Get one drop of Moxifloxacin and Ketorolac in the operative eye prior to arriving at the surgery center. After your surgery: Do not remove your eye shield at home, except to instill your medication eye drops. Your eye shieldwill be removed in the office the following day. No heavy lifting or bending from the waist. Limit your activity. Avoid bumping or rubbing the operative eye. You will be given instructions in the surgery center about starting the three eyedrops after surgery. Call the office if you have any questions or concerns at , option 1. If the call is after business hours you will automatically connect with the answering service and they will contact your doctor as needed documented [facility] History of Present illness Narrative* Dianelys Gómez MD - 02/10/2022 11:42 AM EDT Assessment and Plan 1. Combined forms of age-related cataract of both eyes Cataract Presurgical Documentation Cataract: Left eye (OS) Current Visual Acuity Right Eye Distance SC 20/30 Left Eye Distance SC 20/25 Glare Testing: Right Eye Medium 20/40 Left Eye Medium 20/70 Visual Function: Cesar Bartholomew states that the decline in vision from the cataract impedes his abilities as listed in the HPI, as well as other activities of daily living. Cesar Pacheco has confirmed that he is no longer able to function adequately on a day-to-day basis because of his current visual condition. Further, it is my medical opinion that the cataract is the primary cause, or at least a significantly contributory cause of his visual dysfunction. With uncomplicated cataract surgery and lens implantation, it is my expectation that his visual function and quality of life will improve, significantly. The risks, benefits, alternatives, personnel and complications of cataract surgery with lens implantation were discussed with Cesar Tara Bartholomew in detail. he appeared to understand and asked that I proceed with plans for surgery. Plan: Cataract: Left eye (OS) Aim -0.25 SA60WF/ACU0T0 power + Flomax N Diabetes N Glaucoma N Astigmatism N Pentacam none right eye, 1.4 left eye Refractive surgery N Fuchs N Trypan blue N Malyugin ring Possible Other N/A I have confirmed and edited as necessary the relevant ophthalmic history, ROS, and the neuro exam findings as obtained by others. I have seen and examined Cesar Tara Bartholomew. I have discussed the case and the management of this patient's care with the Resident/Fellow, if applicable. I also have reviewed and agree with the assessment and plan as stated above and agree withall of its relevant components. Dianelys Gómez MD February 10, 2022 11:42 AM documented in this encounter[facility] History of Past illness Narrative* Problem Noted Date Resolved Date Obesity, unspecified 03/14/2008 08/31/2010 documented as of this encounter (statuses as of 02/10/2022) [facility] History of Past illness Narrative* Problem Noted Date Resolved Date Obesity, unspecified 03/14/2008 08/31/2010 documented as of this encounter (statuses as of 02/11/2022) [facility] History of Past illness Narrative* Problem Noted Date Resolved Date Obesity, unspecified 03/14/2008 08/31/2010 documented as of this encounter (statuses as of 02/11/2022) [facility] Diagnosis Combined forms of age-related cataract of both eyes- Primary Other and combined forms of senile cataract [facility] Diagnosis Pseudophakia- Primary Lens replaced by other means [facility] Diagnosis Pseudophakia- Primary Lens replaced by other means Combined forms of age-related cataract of right eye Other and combined forms of senile cataract Epiretinal membrane (ERM) of left eye [facility] Diagnosis Pseudophakia- Primary Lens replaced by other means Epiretinal membrane (ERM) of left eye Combined forms of age-related cataract of right eye Other and combined forms of senile cataract [facility] Diagnosis Pseudophakia- Primary Lens replaced by other means Epiretinal membrane (ERM) of left eye Combined forms of age-related cataract of right eye Other and combined forms of senile cataract documented in this encounter [facility] Medications Administered Section Active Administered Medications - up to 3 most recent administrations Medication Order MAR Action Action Date Dose Rate Site fluorescein-benoxinate 0.25-0.4 % 1 Drop (FLURESS) 1 Drop, BOTH EYES, DIRECTED, Starting on Tue02/10/22 at 1100, Until Tue02/10/22 at 2259, Administer for applanation tonometry. In the event of a Fluress shortage, administer Ana-Fluor 1 drop into both eyes as directed for applanation tonometry Given 02/10/2022 11:00 AM EDT 1 Drop PHENYLephrine 2.5 % 1 Drop (AK-DILATE, ANTONIO-SYNEPHRINE) 1 Drop, BOTH EYES, DIRECTED, Starting on Tue02/10/22 at 1100, Until Tue02/10/22 at 2259, Administer for dilation PROTECT FROM LIGHT Given 02/10/2022 11:00 AM EDT 1 Drop proparacaine 0.5 % 1 Drop (ALCAINE) 1 Drop, BOTH EYES, DIRECTED, Starting on Tue02/10/22 at 1100, Until Tue02/10/22 at 2259, Administer for pneumo tonometry, tonopen tonometry, or pachymetry. In the event of a proparacaine shortage, administer tetracaine 0.5% ophthalmic drops 1 drop in the left eye as directed for pneumo tonometry, tonopen tonometry, or pachymetry Given 02/10/2022 11:00 AM EDT 1 Drop tropicamide 1 % 1 Drop (MYDRIACYL) 1 Drop, BOTH EYES, DIRECTED, Starting on Tue02/10/22 at 1100, Until Tue02/10/22 at 2259, Administer for dilation Given 02/10/2022 11:00 AM EDT 1 Drop Summary Purpose Family History No Family History Records FoundNo Family History Records Found Advance Directives No Advanced Directives Records FoundNo Advanced Directives Records Found Additional Source Comments Source Comments (unrecognize d section and content) In the event this informatio n is protected by the Federal Confidentiality of Alcohol and Drug Abuse Patient Records regulations: The Federal rules restrict any use of the information to criminally investigate or prosecute any alcohol or drug abuse patient.[facility] Center[facility] the event this information is protected by the Federal Confidentiality of Alcohol and Drug Abuse Patient Records regulations: The Federal rules restrict any use of the information to criminally investigate or prosecute any alcohol or drug abuse patient.[facility] Center[facility] the event this information is protected by the Federal Confidentiality of Alcohol and Drug Abuse Patient Records regulations: The Federal rules restrict any use of the information to criminally investigate or prosecute any alcohol or drug abuse patient.[facility] CenterIn the event this information is protected by the Federal Confidentiality of Alcohol and Drug Abuse Patient Records regulations: The Federal rules restrict any use of the information to criminally investigate or prosecute any alcohol or drug abuse patient.[facility] Center[facility] the event this information is protected by the Federal Confidentiality of Alcohol and Drug Abuse Patient Records regulations: The Federal rules restrict any use of the information to criminally investigate or prosecute any alcohol or drug abuse patient.[facility] Center[facility] the event this information is protected by the Federal Confidentiality of Alcohol and Drug Abuse Patient Records regulations: The Federal rules restrict any use of the information to criminally investigate or prosecute any alcohol or drug abuse patient.[facility] CenterIn the event this information is protected by the Federal Confidentiality of Alcohol and Drug Abuse Patient Records regulations: The Federal rules restrict any use of the information to criminally investigate or prosecute any alcohol or drug abuse patient.[facility] Reason for Visit (unrecogniz ed section and content) Specialty Diagnoses / Procedures Referred By Contac t Referred To Contact Ophthalmology / OPHTHALMOLOGY Diagnoses Follow-up exam 1W F/U Post Op Procedures UNLISTED EVALUATION AND MANAGEMENT SERVICE UNLISTED DIAGNOSTIC RADIOGRAPHIC PROCEDURE UNLISTED CHEMISTRY TEST EST ADULT Dianelys Gómez MD [address] [place] [address] Dianelys Gómez MD [address] [place] [id number] Referral ID Status Reason Start Date Expiration Date V isits Requested Visits Authorized [id number] Authorized 04/15/2022 04/16/2023 99 99 Reason Comments Cataract Evaluation Specialty Diagnoses / Procedures Referred By Contact Referred To Contact Ophthalmology / OPHTHALMOLOGY Diagnoses Cataract Referrral for catarcat Dr Dorsey Procedures OFFICE/OUTPATIENT NEW HIGH MDM 60-74 MINUTES NEW EXAM SPECIAL RE Physicians, [facility] npi [phone] Dianelys Gómez MD [address] [place], [place] [id number] Referral ID Status Reason Start Date Expiration Date Visits Re quested Visits Authorized [id number] Closed 01/28/2022 05/29/2022 1 1 Reason Comments Patient Update Pharmacy Name Reason Onset Date Comments Refill Request 02/11/2022 Pre-op drops Reason Comments Blurred Vision Left Eye Post-op (Ophthalmology) Left Eye -s/p ca taract extraction with intraocular lens implantation left eye 04/06/22 Specialty Diagnoses / Procedures Referred By Contact Referred To Contact Ophthalmology / OPHTHALMOLOGY Diagnoses 1W F/U Post Op Procedures EST ADULT Dianelys Gómez MD [address] [place] [address] Dianelys Gómez MD [address] [place] [address] Referral ID Status Reason Start Date Expiration Date V isits Requested Visits Authorized [id number] Pending Review 04/07/2022 07/06/2022 1 1 Reason Comments Refraction After cataract extra ction OU Specialty Diagnoses / Procedures Referred By Contac t Referred To Contact Optometry / OPHTHALMOLOGY Diagnoses Refraction. Procedures EST ADULT Alison Vasquez, OD [address] [place] [address] Alison Vasquez, OD [address] [place] [address] Referral ID Status Reason Start Date Expiration Date Visits Re quested Visits Authorized [id number] Closed 05/11/2022 05/29/2022 1 1 Care Teams (unrecognized sec tion and content) Aging Room Operator Relationship Specialty Start Date End Date Ramsey Perez MD [address] [facility] [address] [place], [place] [phone] PCP - General Family Practice 02/11/22 Aging Room Operator Relationship Specialty Start Date End Date Ramsey Perez MD [address] [facility] [address] [place], [place] [phone] PCP - General Family Practice 02/11/22 Aging Room Operator Relationship Specialty Start Date End Date Ramsey Perez MD [address] [facility] [address] [place], [place] [phone] PCP - General Family Medicine 02/11/22 Aging Room Operator Relationship Specialty Start Date End Date Ramsey Perez MD [address] [facility] [address] [place], [place] [phone] PCP - General Family Medicine 02/11/22 (unrecognized sect ion and content) No Status Records FoundNo Status Records Found INFORMATION SOURCE (unrecogn ized section and content) DATE CREATED AUTHOR AUTHOR'S ORGANIZ ATION 05/12/2022 [facility] FOR RECORDS PERTAINING TO PATIENTS WHO ARE OR HAVE BEEN ENROLLED IN A CHEMICAL DEPENDENCY/SUBSTANCEABUSE PROGRAM, SOME INFORMATION MAY BE OMITTED. This clinical summary was aggregated from multiple sources. Caution should be exercised in using it in the provision of clinical care. This summary normalizes information from multiple sources, and as a consequence, information in this document may materially change the coding, format and clinical context of patient data. In addition, data may be omitted in some cases. CLINICAL DECISIONS SHOULD BE BASED ON THE PRIMARY CLINICAL RECORDS. [facility]. provides no warranty or guarantee of the accuracy or completeness of information in this document.
[2023-06-23 12:45] LABS: Hematocrit 48.9 % (40-54); Hemoglobin 15.8 g/dL (13.0-16.5); Mean Corp Hgb Conc 32.3 g/dL (32-36); Mean Corpuscular Hgb 28.3 pg (27.0-32.0); Mean Corpuscular Volume 87.5 fL (80-94); Mean Platelet Vol. 11.5 fl (6.2-12.0); Platelet Count 213 K/mm3 (150-450); RBC Distribution Width SD 41.1 fl (35.1-43.9); Red Blood Count 5.59 M/mm3 (4.6-6.2); White Blood Count 6.2 K/mm3 (4.4-11.0)
[2023-06-23 13:09] LABS: AST(SGOT) 17 U/L (15-37); Alanine Aminotransfer ALT/SGPT 34 U/L (16-61); Albumin, Serum 3.6 g/dL (3.2-5.0); Alkaline Phosphatase 65 U/L (45-117); Anion Gap 6 (5-15); BUN 18 mg/dL (7-18); BUN/Creat Ratio 19.4 RATIO (10-20); Calcium,Total 9.6 mg/dL (8.5-10.1); Chloride 109 mmol/L (98-107); Creatinine, Serum 0.93 mg/dL (0.70-1.30); EST Glomerular Filtration Rate 84 mL/min (>60); Est Glom Filt Rate - Afr Amer 101 mL/min (>60); Globulin 3.5 g/dL (2.2-4.2); Glucose 116 mg/dL (74-106); Potassium 4.3 mmol/L (3.5-5.1); Protein, Total 7.1 g/dL (6.4-8.2); Sodium Level 139 mmol/L (136-145)
== END | disposition home or self-care (01) ==
LOC: MFPLAB 09:48
PROVIDERS: PCP Family Medicine; Visit Provider Family Medicine
DX: I25.810 Atherosclerosis of coronary artery bypass graft(s) without angina pectoris (principal); E66.01 Morbid (severe) obesity due to excess calories; R73.03 Prediabetes
CPT/HCPCS: 36415; 80053; 85027

== ENCOUNTER → 2023-12-05 | Outpatient (CLI) | payer MEDICARE, SELFPAY ==
[2023-12-05 10:15] LABS: Absolute Lymphocyte Count 1.27 X10^3/uL (0.83-4.51); Absolute Neutrophil Count 3.4 X10^3/uL (2.0-7.7); Basophil# 0.05 X10^3/uL; Basophil% 0.9 % (0-1); Eosinophil# 0.15 X10^3/uL; Eosinophils% 2.7 % (0-5); Hematocrit 47.7 % (40-54); Hemoglobin 15.4 g/dL (13.0-16.5); Lymphocyte # 1.27 X10^3/ul (0.83-4.51); Lymphocyte % 22.7 % (19-41); Mean Corp Hgb Conc 32.3 g/dL (32-36); Mean Corpuscular Hgb 28.7 pg (27.0-32.0); Mean Platelet Vol. 12.1 fl (6.2-12.0); Monocyte# 0.69 X10^3/uL; Monocyte% 12.3 % (0-10); NRBC Flagged by Analyzer 0 % (0-5); Neutrophil # 3.41 X10^3/uL (2.7-7.7); Platelet Count 185 K/mm3 (150-450); RBC Distribution Width CV 12.5 % (11.6-14.6); RBC Distribution Width SD 40.5 fl (35.1-43.9); Red Blood Count 5.36 M/mm3 (4.6-6.2); White Blood Count 5.6 K/mm3 (4.4-11.0)
[2023-12-05 10:51] LABS: Microalbumin,Random Urine 12.3 mg/L (NO RANGE EST.); Microalbumin:Creatinine Ratio 6.9 mg/g CRE (<30 mg/g CRE)
[2023-12-05 11:12] LABS: ALB/GLOB Ratio 1.1 RATIO (0.9-2.4); AST(SGOT) 18 U/L (15-37); Alanine Aminotransfer ALT/SGPT 33 U/L (16-61); Albumin, Serum 3.8 g/dL (3.2-5.0); Alkaline Phosphatase 62 U/L (45-117); Anion Gap 8 (5-15); BUN 23 mg/dL (7-18); BUN/Creat Ratio 21.3 RATIO (10-20); Calcium,Total 9.7 mg/dL (8.5-10.1); Chloride 111 mmol/L (98-107); Cholesterol 130 mg/dL (200); Creatinine, Serum 1.08 mg/dL (0.70-1.30); EST Glomerular Filtration Rate 70 mL/min (>60); Est Glom Filt Rate - Afr Amer 85 mL/min (>60); Globulin 3.4 g/dL (2.2-4.2); Glucose 117 mg/dL (74-106); High Density Lipoprotein 42 mg/dL; Potassium 4.7 mmol/L (3.5-5.1); Protein, Total 7.2 g/dL (6.4-8.2); Sodium Level 140 mmol/L (136-145); Triglycerides 129 mg/dL; Very Low Density Lipoprotein 26 mg/dL (5-40)
== END | disposition home or self-care (01) ==
LOC: MFPLAB 08:50
PROVIDERS: PCP Family Medicine; Visit Provider Family Medicine
DX: I25.810 Atherosclerosis of coronary artery bypass graft(s) without angina pectoris (principal); R73.03 Prediabetes
CPT/HCPCS: 36415; 80053; 80061; 82043; 82570; 85025

== ENCOUNTER → 2024-07-19 | Outpatient (CLI) | payer MEDICARE, SELFPAY ==
[2024-07-19 15:29] LABS: Microalbumin,Random Urine 17.4 mg/L (NO RANGE EST.); Microalbumin:Creatinine Ratio 9.1 mg/g CRE (<30 mg/g CRE)
[2024-07-19 15:34] LABS: Absolute Lymphocyte Count 1.17 X10^3/uL (0.83-4.51); Absolute Neutrophil Count 5.9 X10^3/uL (2.0-7.7); Basophil# 0.05 X10^3/uL; Basophil% 0.6 % (0-1); Eosinophil# 0.13 X10^3/uL; Eosinophils% 1.6 % (0-5); Hematocrit 49.6 % (40-54); Hemoglobin 16.2 g/dL (13.0-16.5); Lymphocyte # 1.17 X10^3/ul (0.83-4.51); Lymphocyte % 14.1 % (19-41); Mean Corp Hgb Conc 32.7 g/dL (32-36); Mean Corpuscular Hgb 28.9 pg (27.0-32.0); Mean Corpuscular Volume 88.4 fL (80-94); Mean Platelet Vol. 11.3 fl (6.2-12.0); Monocyte# 1.05 X10^3/uL; Monocyte% 12.6 % (0-10); NRBC Flagged by Analyzer 0 % (0-5); Neutrophil # 5.89 X10^3/uL (2.7-7.7); Neutrophil % 70.7 % (47-70); Platelet Count 208 K/mm3 (150-450); RBC Distribution Width CV 13.2 % (11.6-14.6); RBC Distribution Width SD 42.5 fl (35.1-43.9); Red Blood Count 5.61 M/mm3 (4.6-6.2); White Blood Count 8.3 K/mm3 (4.4-11.0)
[2024-07-19 15:41] LABS: ALB/GLOB Ratio 1.1 RATIO (0.9-2.4); AST(SGOT) 20 U/L (15-37); Alanine Aminotransfer ALT/SGPT 28 U/L (16-61); Albumin, Serum 3.9 g/dL (3.2-5.0); Alkaline Phosphatase 61 U/L (45-117); Anion Gap 6 (5-15); BUN 25 mg/dL (7-18); BUN/Creat Ratio 25.4 RATIO (10-20); Calcium,Total 9.3 mg/dL (8.5-10.1); Chloride 110 mmol/L (98-107); Creatinine, Serum 0.98 mg/dL (0.70-1.30); EST Glomerular Filtration Rate 78 mL/min (>60); Est Glom Filt Rate - Afr Amer 94 mL/min (>60); Globulin 3.4 g/dL (2.2-4.2); Glucose 114 mg/dL (74-106); Potassium 4.5 mmol/L (3.5-5.1); Protein, Total 7.3 g/dL (6.4-8.2); Sodium Level 138 mmol/L (136-145)
== END | disposition home or self-care (01) ==
LOC: MFPLAB 11:02
PROVIDERS: PCP Family Medicine; Referring Provider Family Medicine; Visit Provider Family Medicine
DX: I25.810 Atherosclerosis of coronary artery bypass graft(s) without angina pectoris (principal); R73.03 Prediabetes
CPT/HCPCS: 36415; 80053; 82043; 82570; 85025

== ENCOUNTER → 2025-04-11 | Outpatient (CLI) | payer MEDICARE, SELFPAY ==
[2025-04-11 11:02] LABS: AST(SGOT) 24 U/L (<=37); Alanine Aminotransfer ALT/SGPT 19 U/L (<=46); Albumin, Serum 4.0 g/dL (3.4-4.8); Alkaline Phosphatase 56 U/L (40-129); Bilirubin, Direct 0.25 mg/dL (0.00-0.30); Cholesterol 133 mg/dL (<=200); Globulin 3.1 g/dL (2.2-4.2); Low Density Lipoprotein Calc. 70 mg/dL; Triglycerides 120 mg/dL; Very Low Density Lipoprotein 24 mg/dL (5-40); cholesterol:hdl ratio screen 3.23
== END | disposition home or self-care (01) ==
LOC: LAB 09:20
PROVIDERS: PCP Family Medicine; Referring Provider Physician Assistant Medical; Visit Provider Physician Assistant Medical
DX: E78.00 Pure hypercholesterolemia, unspecified (principal)
CPT/HCPCS: 36415; 80061; 80076